=== PATIENT | male | born 1945 | race Caucasian/White ===

== ENCOUNTER → 2016-11-01 | Outpatient (CLI) | payer BC, MEDICARE, OTHER ==
--- NOTE | 2016-11-01 14:37 | RADRPT ---
PROCEDURE: XR left knee. CLINICAL INDICATION: Knee pain TECHNIQUE: AP weightbearing, PA weightbearing, lateral weightbearing and sunrise views are availa ble for review. COMPARISON: None available FINDINGS: There is mild osteoarthrosis involving the patellofemoral compartment. This is associated with osteo phytosis. There is a small suprapatellar joint effusion. The osseous structures are otherwise normal in mineralization, architecture and alignment. No fract ures are identified. No osseous lesions are identified. The soft tissues are unremarkable. IMPRESSION: Mild osteoarthrosis involving the patellofemoral compartment. Small suprapatellar joint effusion RPTAT: [facility] .Dipak Abdul MD, Date Time Electronically viewed and signed by .Dipak Abdul MD, on 11/01/2016 14:37 .B/
== END | disposition home or self-care (01) ==
LOC: HKI 14:24
PROVIDERS: ATTEND Orthopaedic Surgery
DX: M25.462 Effusion, left knee (principal); M25.562 Pain in left knee
CPT/HCPCS: 20610; 73564; G0463; J1030

== ENCOUNTER → 2016-11-22 | Outpatient (CLI) | payer BC, MEDICARE, OTHER | END | disposition home or self-care (01) | LOC: HKI 13:48 | PROVIDERS: ATTEND Orthopaedic Surgery | DX: M10.062 Idiopathic gout, left knee (principal); M25.562 Pain in left knee | CPT/HCPCS: G0463 ==

== ENCOUNTER 2017-05-23 07:39 | Emergency (ER) | payer BC, MEDICARE, OTHER ==
[~2017-05-23] VITALS: Ht 170.2 cm; Wt 79.5 kg
[2017-05-23 07:44] VITALS: Ht 170.2 cm; Wt 79.5 kg
== END 2017-05-23 08:22 | disposition left against medical advice (07) ==
LOC: E/R 07:39
DX: Z53.21 Procedure and treatment not carried out due to patient leaving prior to being seen by health care provider (principal)